=== PATIENT | male | born 1955 | race Caucasian/White ===

== ENCOUNTER 2020-02-03 08:22 | Day surgery (SDC) | payer OTHER ==
[~2020-02-03] VITALS: Ht 175.3 cm; Wt 118.2 kg
[~2020-02-03 08:22] MED LIST: CYCL10 PO; SILD50TA PO
[2020-02-03] MEDS ORDERED: Prinivil10 MG PO (09:20)
== END 2020-02-03 13:45 | disposition home or self-care (01) ==
LOC: ORSCSDS 08:22
PROVIDERS: Otolaryngology
PROC: 8E09XBZ Computer Assisted Procedure of Head and Neck Region (ICD-10-PCS; principal; 2020-02-03 09:45)
PROC: 09TU4ZZ Resection of Right Ethmoid Sinus, Percutaneous Endoscopic Approach (ICD-10-PCS; principal; 2020-02-03 09:45)
PROC: 09TV4ZZ Resection of Left Ethmoid Sinus, Percutaneous Endoscopic Approach (ICD-10-PCS; principal; 2020-02-03 09:45)
DX: J32.8 Other chronic sinusitis (principal); I10 Essential (primary) hypertension; E11.9 Type 2 diabetes mellitus without complications; G47.33 Obstructive sleep apnea (adult) (pediatric); E66.01 Morbid (severe) obesity due to excess calories; Z68.38 Body mass index [BMI] 38.0-38.9, adult; Z79.899 Other long term (current) drug therapy
CPT/HCPCS: J1100; J2250; J2405; J2704; J3010

== ENCOUNTER 2020-04-25 06:56 | Day surgery (SDC) | payer OTHER ==
[~2020-04-25] VITALS: Ht 175.3 cm; Wt 116.6 kg
[~2020-04-25 06:56] MED LIST changes: +CYCL10; +PRED20 PO; +Prinivil10 MG PO; +SILD50TA
[2020-04-25] MEDS ORDERED: Phenergan25 M1 PO (08:03)
[2020-04-25] MEDS ORDERED: CLAR500 PO (08:03)
--- NOTE | 2020-04-25 09:10 | NUR ---
04/25/20 0910 Nini Sullivan ([place] ELEVATED BLOOD SUGAR OF [id number] REPORTED TO BOTH SURGEON & ANESTESIOLOGIST. CASE TO BE RESCHEDULE FOR SAFETY REASONS REGARDING UNCONTROLLED BLOOD SUGARS.
== END 2020-04-25 08:35 | disposition home or self-care (01) ==
LOC: ORSCSDS 06:56
DX: J32.8 Other chronic sinusitis (principal); Z53.9 Procedure and treatment not carried out, unspecified reason; G47.33 Obstructive sleep apnea (adult) (pediatric); I10 Essential (primary) hypertension; E11.9 Type 2 diabetes mellitus without complications; N18.9 Chronic kidney disease, unspecified; E78.5 Hyperlipidemia, unspecified; Z79.899 Other long term (current) drug therapy
CPT/HCPCS: 82947; J0171; J1100; J1815; J2250; J2704; J3010; J7120

== ENCOUNTER 2021-03-06 06:07 | Day surgery (SDC) | payer OTHER ==
[~2021-03-06] VITALS: Ht 175.3 cm; Wt 113.9 kg
[~2021-03-06 06:07] MED LIST changes: +CLAR500 PO; +Phenergan25 M1 PO
[2021-03-06] MEDS ORDERED: SYNJARDY 12.5-1 EAC3 PO (07:08)
[2021-03-06] MEDS ORDERED: JARDIANCE25 MG PO (07:10)
== END 2021-03-06 11:39 | disposition home or self-care (01) ==
LOC: ORSCSDS 06:07
DX: J32.8 Other chronic sinusitis (principal); E11.9 Type 2 diabetes mellitus without complications; I10 Essential (primary) hypertension; G47.33 Obstructive sleep apnea (adult) (pediatric); Z79.84 Long term (current) use of oral hypoglycemic drugs; Z79.899 Other long term (current) drug therapy
CPT/HCPCS: 82947; 88305; 88311; A9270; C2625; J0171; J1100; J2250; J2405; J2704; J3010; J7120